=== PATIENT | male | born 1965 | race Caucasian/White ===

== ENCOUNTER 2021-01-20 17:10 | Outpatient (CLI) | payer OTHER, SELFPAY ==
--- NOTE | ~2021-01-20 | XR_ITS ---
XR knee RT 3V 01/20/2021 17:49 Indication: Right knee pain for 8 months. Procedure: 3 views right knee Comparison: No prior studies for comparison. Findings: Mild osteoarthritis of the right knee. No fracture or traumatic malalignment. Normal minera lization. No significant joint effusion. Impression: 1: Mild osteoarthritis of the right knee. Reviewed, dictated and finalized at location B. Impression: 1: Mild osteoarthritis of the right knee.
== END 2021-01-20 17:11 | disposition home or self-care (01) ==
PROVIDERS: PCP Family Medicine; Visit Provider Nurse Practitioner
DX: M25.561 Pain in right knee (principal); M17.11 Unilateral primary osteoarthritis, right knee
CPT/HCPCS: 73562

== ENCOUNTER 2021-04-20 09:15 | Outpatient (CLI) | payer OTHER, SELFPAY ==
--- NOTE | ~2021-04-20 | XR_ITS ---
XR hip RT min 2V 04/20/2021 09:54 Indication: Right hip pain. Limited range of motion. Procedure: 2 views right hip Comparison: No prior studies for comparison. Findings: Severe osteoarthritis of the right hip with slight chondral cyst in sclerosis. No fracture or traumatic malalignment. No significant soft tissue abnormality. No radiopaque foreign bodies. Impression: 1: Severe osteoarthritis of the right hip. Reviewed, dictated and finalized at location B. Impression: 1: Severe osteoarthritis of the right hip.
== END 2021-04-20 09:16 | disposition home or self-care (01) ==
LOC: CHSIMG 09:18
PROVIDERS: PCP Family Medicine; Visit Provider Physician Assistant
DX: M25.551 Pain in right hip (principal)
CPT/HCPCS: 73502

== ENCOUNTER 2021-04-27 10:54 | Outpatient (RCR) | payer OTHER, SELFPAY ==
--- NOTE | 2021-04-27 12:03 | PTOPEVAL ---
Thank you for referring Ismael Russo to [facility] [place].? The patient is scheduled to be seen for therapy? ____x/week for ___ weeks. Please review, sign, date and return this plan of care REI. I agree with and certify that the following plan of care is medically necessary. Referring Physician Date Admitting Provider: Attending Provider: Ana Kulkarni, [employer]ING [employer]SMAN Referring Provider: *PT Outpatient Evaluation Start: 04/27/21 10:54 Freq: Status: Active Protocol: Document 04/27/21 10:54 ACR (Rec: 04/27/21 12:02 ACR [id number]) Therapy Assessment Status Assessment Status Assessment Status Evaluation Evaluation Information Problem Diagnosis LBP, R hip pain Onset 01/25/21 Subjective Information Patient states that he has Query Text:As Reported By Patient/ pain in his hip and knee which Family he was diagnosed with OA. The patient states that his pain started about a year ago, but the past 3 weeks he has been going down hill. The patient states that the pain is so severe that he is unable to work at this time. The patient states that the pain is constant and it is hard for him to drive, walk, stand, and navigate stairs. He also has difficulty getting in and out of his truck and it is waking him up at night. He is taking muscle relaxers and the occasional tramadol which does not help much. Patient is unable to work at this time and is out for 2 weeks. Prior Level of Function Activity Level (Last 3 Months) Occupation construction carpenters helper Hand Dominance Right Activity of Daily Living Ability Independent Indoor/Home Mobility Independent Community Mobility Independent Stairs Ability Independent Functional Cognition (Planning, Shopping Independent , Taking Medications) Cooking Yes Cleaning Yes Laundry Yes Shopping Yes Driving Yes Pain Assessment Timing of Pain Assessment Timing of Pain Assessment Assessment Pain Scale Pain Scale Used Numeric (1 - 10) Self Report Pain Assessment Right Hip(s) Reported Pain Level
== END 2021-05-27 17:00 | disposition home or self-care (01) ==
LOC: CHSPT 10:54
PROVIDERS: Visit Provider Nurse Practitioner Family
DX: M54.16 Radiculopathy, lumbar region (principal); M51.26 Other intervertebral disc displacement, lumbar region; M16.11 Unilateral primary osteoarthritis, right hip
CPT/HCPCS: 97014; 97110; 97140; 97161; G0283

== ENCOUNTER 2021-06-20 09:58 | Outpatient (RCR) | payer OTHER, SELFPAY ==
--- NOTE | 2021-06-20 11:03 | PTOPEVAL ---
Thank you for referring Ismael Russo to [facility].? The patient is scheduled to be seen for therapy? ___3_x/week for 12 visits. Please review, sign, date and return this plan of care REI. I agree with and certify that the following plan of care is medically necessary. Referring Physician Date Admitting Provider: Attending Provider: Ana Kulkarni, BRASS FINISHER Referring Provider: *PT Outpatient Evaluation Start: 06/20/21 10:03 Freq: Status: Active Protocol: Document 06/20/21 10:03 [facility] (Rec: 06/20/21 11:01 [id number]) Therapy Assessment Status Assessment Status Assessment Status Evaluation Evaluation Information Problem Diagnosis s/p right BRIA Onset 06/13/21 Subjective Information Pt. reports that he underwent Query Text:As Reported By Patient/ surgery on 06/13/21. He Family returned home from the hospital the next day. Pt. reports that he has been exercise at home. He states that since surgery is groin pain has decreased. He does not some low back and leg sorness on this date. 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 He states that he is currently using a walker. He reports that his goal for therapy is to be able to return to walking normal. Prior Level of Function Activity Level (Last 3 Months) Occupation construction work Hand Dominance Right Activity of Daily Living Ability Independent Indoor/Home Mobility Independent Community Mobility Independent Stairs Ability Independent Functional Cognition (Planning, Shopping Independent , Taking Medications) Cooking Yes Cleaning Yes Laundry Yes Shopping Yes Driving Yes Pain Assessment Timing of Pain Assessment Timing of Pain Assessment Pre-Treatment Pain Scale Pain Scale Used Numeric (1 - 10) Self Report Pain Assessment Right Hip(s) Reported Pain Level 5 Pain Description Aching Pain Frequency Continuous Additional Pain Comments Pt. is taking pain medication every 5 hours. Pt. did not bring med list. Pain Score Pain Score 5:
--- NOTE | 2021-07-21 10:03 | PTOPEVAL ---
Thank you for referring Ismael Russo to [facility].? The patient is scheduled to be seen for therapy? ____x/week for ___ weeks. Please review, sign, date and return this plan of care REI. I agree with and certify that the following plan of care is medically necessary. Referring Physician Date Admitting Provider: Attending Provider: Ana Kulkarni, SAP ARCHITECT Referring Provider: *PT Outpatient Evaluation Start: 06/20/21 10:03 Freq: Status: Active Protocol: Document 07/21/21 08:53 ACR (Rec: 07/21/21 10:02 ACR [email or web address]) Therapy Assessment Status Assessment Status Assessment Status Progress Evaluation Information Problem Diagnosis R hip replacement Onset 06/13/21 Subjective Information Patient reports that since Query Text:As Reported By Patient/ beginning therapy he feels Family quite a bit stronger, but he still has difficulty with uneven surfaces, stairs, and ambulating for a period of time. All of these difficulties limits the patient to safely return back to work. Pain Assessment Timing of Pain Assessment Timing of Pain Assessment Pre-Treatment Pain Scale Pain Scale Used Numeric (1 - 10) Self Report Pain Assessment Right Lower Back Reported Pain Level 4 Right Hip(s) Reported Pain Level 0 Pain Score Pain Score 4,0: Self Report Interventions Used Interventions Used By Clinicians Activity or ADL's,Exercise Lower Extremity Muscle Strength Testing Hip Strength Right Hip Flexion Strength 3+ Fair + Left Hip Flexion Strength 5 Normal Knee Strength Right Knee Flexion Strength 4+ Good + Knee Extension Strength 4 Good Left Knee Flexion Strength 5 Normal Knee Extension Strength 5 Normal Ankle Strength Left Ankle Dorsiflexion Strength 5 Normal Right Ankle Dorsiflexion Strength 3+ Fair + Balance Assessment Time Up Go (TUG) Timed Up and Go Test (TUG) (Seconds) 10 5 Time Sit to Stand Time in Seconds 14 Gait Assessment Gait Assessment Additional Ambulation Comments The patient ambulates for 6 minutes on a level surface with no AD for 850 ft. The patient ambulates with proper stride and no antalgia for 2 minutes, the patient began to demonstrate L hip drop, antalgia, and decreased
--- NOTE | 2021-08-25 09:29 | PTOPEVAL ---
Thank you for referring Ismael Russo to [facility].? The patient is scheduled to be seen for therapy? ____x/week for ___ weeks. Please review, sign, date and return this plan of care REI. I agree with and certify that the following plan of care is medically necessary. Referring Physician Date Admitting Provider: Attending Provider: Ana Kulkarni, ART TEACHER Referring Provider: *PT Outpatient Evaluation Start: 06/20/21 10:03 Freq: Status: Active Protocol: Document 08/25/21 07:58 [facility] (Rec: 08/25/21 09:09 [facility] [email or web address]) Therapy Assessment Status Assessment Status Assessment Status Progress Evaluation Information Problem Diagnosis R hip replacement Onset 06/13/21 Subjective Information patient reports his R hip Query Text:As Reported By Patient/ feels good this date. he Family reports he does continue to have pain in the R lower back. he reports he continues to feel better and stronger each week. Pain Assessment Timing of Pain Assessment Timing of Pain Assessment Assessment Pain Scale Pain Scale Used Numeric (1 - 10) Self Report Pain Assessment Right Lower Back Reported Pain Level 5 Right Hip(s) Reported Pain Level 0 Pain Score Pain Score 5,0: Self Report Interventions Used Interventions Used By Clinicians Activity or ADL's,Education, Exercise Lower Extremity Muscle Strength Testing Hip Strength Right Hip Flexion Strength 4+ Good + Muscle Length Testing Muscle Length Testing Right Hamstring Length 45 Query Text:(90 - 90 Position) Muscle Length Testing Comments moderate rectus femoris tightness of the R hip. Gait Assessment Gait Assessment Additional Ambulation Comments recirpocal gait mechanics with minimal bilateral trunk lean/ sway 6 Minute Walk Total Distance (feet) 800 6 Minute Walk Gait Speed Score (feet/ 2.22 second) Number of Breaks During Test 0 Stair Climbing Assessment Stair Climbing Assessment Stair Climbing Assistive Devices Railings Number of Steps Climbed (Steps) 12 Number of Repetitions (Repetitions) 1 Technique Alternating Steps Stair Climbing Direction Both Up and Down Stair Climbing Comments ! hand rail hold with reciprocal mechanics up and down steps without jumping or dropping up or down to step General Exercise General Exercises Exercise Description - Anjali
--- NOTE | 2021-09-01 09:36 | PTOPEVAL ---
Thank you for referring Ismael Russo to [facility].? The patient is scheduled to be seen for therapy? ____x/week for ___ weeks. Please review, sign, date and return this plan of care REI. I agree with and certify that the following plan of care is medically necessary. Referring Physician Date Admitting Provider: Attending Provider: Ana Kulkarni, BUSHLER Referring Provider: *PT Outpatient Evaluation Start: 06/20/21 10:03 Freq: Status: Active Protocol: Document 09/01/21 08:00 [facility] (Rec: 09/01/21 09:09 [facility] [email or web address]) Therapy Assessment Status Assessment Status Assessment Status Discharge Evaluation Information Problem Diagnosis R hip replacement Onset 06/13/21 Additional Evaluation Detail LEFS = 6% functional deficits Subjective Information patient reports his R hip Query Text:As Reported By Patient/ feels great this date. he Family reports he is complicated by pain in the lower back that limits his walking and mobility, especially with work boots on. he reports no deficits with the R hip. Pain Assessment Timing of Pain Assessment Timing of Pain Assessment Assessment Pain Scale Pain Scale Used Numeric (1 - 10) Self Report Pain Assessment Right Lower Back Reported Pain Level 5 Right Hip(s) Reported Pain Level 0 Pain Score Pain Score 5,0: Self Report Interventions Used Interventions Used By Clinicians Activity or ADL's,Education, Exercise Lower Extremity Muscle Strength Testing Hip Strength Right Hip Flexion Strength 5 Normal Left Hip Flexion Strength 5 Normal Knee Strength Right Knee Flexion Strength 5 Normal Knee Extension Strength 5 Normal Left Knee Flexion Strength 5 Normal Knee Extension Strength 5 Normal Muscle Length Testing Muscle Length Testing Left Hamstring Length 40 Query Text:(90 - 90 Position) Right Hamstring Length 40 Query Text:(90 - 90 Position) Gait Assessment Gait Pattern Assessment Other Gait Observations patient ambulates with normal speed/javid. he does ambulates with decreased lumbar lordosis/ppt and slight bilateral trunk lean, but attributes this to his back issues. he reports no pain or issues with the R hip with ambulation. patient ambulates
== END 2021-09-01 09:01 | disposition home or self-care (01) ==
LOC: CHSPT 09:58
PROVIDERS: Visit Provider Nurse Practitioner Family
DX: M16.11 Unilateral primary osteoarthritis, right hip (principal); Z96.641 Presence of right artificial hip joint
CPT/HCPCS: 97014; 97110; 97116; 97161; 97530; G0283

== ENCOUNTER 2022-11-29 09:38 | Outpatient (CLI) | payer OTHER, SELFPAY ==
[2022-11-29 11:33] LABS: Anion Gap 6 mmol/L (8-16); Blood Urea Nitrogen 18 mg/dL (7-18); Calcium 8.7 mg/dL (8.5-10.1); Carbon Dioxide 32 mmol/L (21-32); Chloride 100 mmol/L (98-108); Estimated Glomerular Filt Rate 60; Glucose 119 mg/dL (70-99); Osmolality Calculated 288 mOsm/kg (285-295); Potassium 4.6 mmol/L (3.5-5.1); Sodium 138 mmol/L (136-145)
== END 2022-11-29 09:39 | disposition home or self-care (01) ==
LOC: CHSLAB 09:40
PROVIDERS: PCP Physician Assistant; Visit Provider Family Medicine
DX: I10 Essential (primary) hypertension (principal)
CPT/HCPCS: 36415; 80048